=== PATIENT | female | born 1955 | race Caucasian/White ===

== ENCOUNTER 2017-03-06 09:14 | Emergency (ER) | payer OTHER ==
[~2017-03-06] VITALS: Ht 160 cm; Wt 55.8 kg
[2017-03-06 09:19] VITALS: Ht 160 cm; Wt 55.8 kg
[2017-03-06] MEDS ORDERED: SODIUM CHLORIDE 0.9% 1000ML 1,000 ML IV STA ×2 (09:59→11:31)
--- NOTE | 2017-03-06 10:01 | EMERGENCY ROOM VISIT NOTE ---
History Report prepared by Lizabeth: Myranda Vergara Under the Supervision of: Dr. Ave Angulo D.O. First contact with patient: 09:32 Chief Complaint: NEURO SYMPTOMS Stated Complaint: DISORIENTED,STUMBLING,HIGH BLOOD PRESSURE History of Present Illness The patient is a 61 year old female who presents to the Emergency Room with complaints of constant lightheadedness beginning 3 hours ago. The patient states that she works with the [employer] for the [employer] and has been very busy. She reports that she felt fine when she woke up this morning but when she was at breakfast she started to feel lightheaded. She notes that her daughter and started to notice her disorientation after breakfast when they noticed her stumbling and slurred speech. The patient states she didn't notice any changes in speech or feel off balance walking. The patient states that she sometimes stumbles when she is texting and walking but her notes that she was off-balance and was not texting at all. The patient's notes that her short term memory was off and there was a gap of time missing from her memory. He notes that she was mentally slower than usual and was not able to remember things that just happened. The patient complains of tiredness, slurred speech, stumbling, and constant lightheadedness. She denies any neck pain, back pain, achiness, blurry vision, double vision, cough, cold, fever, chills, new ringing in the ears, headache, urinary symptoms, chest pain, shortness of breath, abdominal pain, nausea, numbness, tingling. She notes that she ate a normal breakfast and has not drank a lot of fluids. The patient's reports that they checked her blood pressure and it was slightly higher than usual as she usually runs low. No recent trauma, no recent illness, no recent change in medications. Source of History: patient Onset: 3 hours ago Position: other (neurologic) Quality: other (disorientation) Timing: constant Associated Symptoms: No fevers, No headache, No cough, No neck pain, No chest pain, No SOB, No nausea, No abdominal pain, No back pain, No urinary symptoms, No numbness Note: The patient complains of tiredness, slurred speech, stumbling, and constant lightheadedness. She denies any achiness, blurry vision, double vision, new ringing in the ears, tingling. Review of Systems See HPI for pertinent positives & negatives. A total of 10 systems reviewed and were otherwise negative. Past Medical & Surgical Medical Problems: (1) Exposure to TB (2) Lung disease Family History No pertinent family history stated. Social History Smoking Status: Never Smoker Marital Status: Housing Status: lives with family Occupation Status: employed Current/Historical Medications Scheduled Belimumab (Benlysta), Unknown Dose IV MONTHLY Bupropion Hcl (Wellbutrin Sr), 500 MG PO DAILY Celecoxib (CeleBREX), Unknown Dose PO DAILY Isoniazid (Isoniazid), Unknown Dose PO DAILY Magnesium Oxide (Mag-Ox), 400 MG PO DAILY Miscellaneous Medications Thiamine Hcl (Vitamin B-1), 50 MG PO Allergies Coded Allergies: Sulfa Antibiotics (Unverified Allergy, Unknown, ., 03/06/17) Physical Exam Vital Signs Date Time Temp Pulse Resp B/P (MAP) Pulse Ox O2 Delivery O2 Flow Rate FiO2 03/06/17 15:21 36.4 68 18 133/86 100 03/06/17 14:23 71 125/80 100 72 145/94 136/88 03/06/17 13:27 71 18 110/76 100 72 120/89 75 109/85 03/06/17 11:11 68 16 131/83 100 Room Air 03/06/17 09:35 78 03/06/17 09:19 36.4 73 18 127/80 99 Room Air Physical Exam GENERAL: alert, well appearing, well nourished, no distress, non-toxic EYE EXAM: normal conjunctiva, PERRL and EOM's grossly intact OROPHARYNX: no exudate, no erythema, lips, buccal mucosa, and tongue normal and mucous membranes are moist NECK: supple, no nuchal rigidity, no adenopathy, non-tender LUNGS: Clear to auscultation. Normal chest wall mechanics HEART: no murmurs, S1 normal and S2 normal ABDOMEN: abdomen soft, non-tender, normo-active bowel sounds, no masses, no rebound or guarding. BACK: Back is symmetrical on inspection and there is no deformity, no midline tenderness, no CVA tenderness. SKIN: no rashes and no bruising UPPER EXTREMITIES: upper extremities are grossly normal. LOWER EXTREMITIES: No pitting edema. NEURO EXAM: Normal sensorium, cranial nerves II-XII grossly intact, normal speech, no gross weakness of arms, no gross weakness of legs. No drift. Finger to nose intact. Gross sensation intact. Negative pronator drift, normal heel to clifton. Negative Hints exam. NIHSS 0. Medical Decision & Procedures ER Provider Diagnostic Interpretation: Radiology results have been interpreted by the radiologist and reviewed by me. HEAD CTA FINDINGS: There is no mass, hematoma, midline shift, or acute infarct. Visualized intracranial internal carotid arteries, distal vertebral arteries, and basilar artery are widely patent. There is no significant stenosis, occlusion, or aneurysm seen within the bilateral ACAs, MCAs, or paving plant operator. IMPRESSION: No significant stenosis, occlusion, or aneurysm within the [place] of [place]. No acute intracranial abnormality. Electronically signed by: Butch Adams M.D. 03/06/2017 11:12 AM Dictated Date/Time: 03/06/2017 11:09 AM CHEST ONE VIEW PORTABLE FINDINGS: The lungs are clear. Cardiac silhouette is normal in size. No pleural effusions. No pneumothorax. IMPRESSION: No acute process. Electronically signed by: Butch Adams M.D. 03/06/2017 10:37 AM Dictated Date/Time: 03/06/2017 10:36 AM NECK CTA FINDINGS: The aortic arch and proximal great vessels are widely patent. There is no significant stenosis, occlusion, or dissection identified within the bilateral common carotid, internal carotid, or vertebral arteries. IMPRESSION: No significant stenosis, occlusion, or dissection identified within the carotid or vertebral arteries. Electronically signed by: Butch Adams M.D. 03/06/2017 11:15 AM Dictated Date/Time: 03/06/2017 11:12 AM Laboratory Results 03/06/17 09:30 Red Blood Count 3.80, Mean Corpuscular Volume 93.2, Mean Corpuscular Hemoglobin 32.1, Mean Corpuscular Hemoglobin Concent 34.5, Mean Platelet Volume 10.2, Neutrophils (%) (Auto) 53.0, Lymphocytes (%) (Auto) 32.4, Monocytes (%) (Auto) 9.0, Eosinophils (%) (Auto) 4.5, Basophils (%) (Auto) 1.1, Neutrophils # (Auto) 1.88, Lymphocytes # (Auto) 1.15, Monocytes # (Auto) 0.32, Eosinophils # (Auto) 0.16, Basophils # (Auto) 0.04 03/06/17 09:30 Test 03/06/17 09:30 03/06/17 11:57 03/06/17 13:26 White Blood Count 3.55 K/uL (4.8-10.8) Red Blood Count 3.80 M/uL (4.2-5.4) Hemoglobin 12.2 g/dL (12.0-16.0) Hematocrit 35.4 % (37-47) Mean Corpuscular Volume 93.2 fL (80-100) Mean Corpuscular Hemoglobin 32.1 pg (25-34) Mean Corpuscular Hemoglobin Concent 34.5 g/dl (32-36) Platelet Count 193 K/uL (130-400) Mean Platelet Volume 10.2 fL (7.4-10.4) Neutrophils (%) (Auto) 53.0 % Lymphocytes (%) (Auto) 32.4 % Monocytes (%) (Auto) 9.0 % Eosinophils (%) (Auto) 4.5 % Basophils (%) (Auto) 1.1 % Neutrophils # (Auto) 1.88 K/uL (1.4-6.5) Lymphocytes # (Auto) 1.15 K/uL (1.2-3.4) Monocytes # (Auto) 0.32 K/uL (0.11-0.59) Eosinophils # (Auto) 0.16 K/uL (0-0.5) Basophils # (Auto) 0.04 K/uL (0-0.2) RDW Standard Deviation 41.4 fL (36.4-46.3) RDW Coefficient of Variation 12.2 % (11.5-14.5) Immature Granulocyte % (Auto) 0.0 % Immature Granulocyte # (Auto) 0.00 K/uL (0.00-0.02) Anion Gap 6.0 mmol/L (3-11) Est Creatinine Clear Calc Drug Dose 40.7 ml/min Estimated GFR () 56.5 Estimated GFR (Non- 48.7 BUN/Creatinine Ratio 15.3 (10-20) Calcium Level 8.7 mg/dl (8.5-10.1) Magnesium Level 2.2 mg/dl (1.8-2.4) Total Bilirubin 0.3 mg/dl (0.2-1) Aspartate Amino Transf (AST/SGOT) 44 U/L (15-37) Alanine Aminotransferase (ALT/SGPT) 50 U/L (12-78) Alkaline Phosphatase 119 U/L (45-117) Troponin I < 0.015 ng/ml (0-0.045) Total Protein 6.9 gm/dl (6.4-8.2) Albumin 3.5 gm/dl (3.4-5.0) Globulin 3.4 gm/dl (2.5-4.0) Albumin/Globulin Ratio 1.0 (0.9-2) Thyroid Stimulating Hormone (TSH) 2.460 uIu/ml (0.300-4.500) Urine Color YELLOW Urine Appearance CLEAR (CLEAR) Urine pH 5.0 (4.5-7.5) Urine Specific [place] 1.039 (1.000-1.030) Urine Protein NEG (NEG) Urine Glucose (UA) NEG (NEG) Urine Ketones NEG (NEG) Urine Occult Blood NEG (NEG) Urine Nitrite NEG (NEG) Urine Bilirubin NEG (NEG) Urine Urobilinogen NEG (NEG) Urine Leukocyte Esterase NEG (NEG) Bedside Troponin I 0.000 ng/ml (0-0.045) Laboratory results per my review. Medications Administered Medications (Trade) Dose Ordered Sig/Yaritza Route Start Time Stop Time Status Last Admin Dose Admin Sodium Chloride 1,000 ml @ 999 mls/hr Q1H1M STAT IV 03/06/17 09:59 03/06/17 10:59 DC 03/06/17 10:30 999 MLS/HR ECG Indication: weakness Rate (beats per minute): 69 Rhythm: sinus rhythm Findings: no acute ischemic change, no ectopy, other (normal intervals, normal axis) ED Course 0932: The patient was evaluated in room B9. A complete history and physical exam was performed. 0959: Sodium Chloride 1000 ml @ 999 mls/hr IV. 1131: Sodium Chloride 1000 ml @ 999 mls/hr IV. 1238: I reevaluated and updated the patient. She is feeling better. 1455: I reevaluated the patient and she is doing well. 1515: Upon reevaluation, the patient is feeling better. I discussed the findings and the treatment plan with the patient. She verbalizes agreement and understanding. The patient was discharged home. Medical Decision Differential diagnosis: Etiologies such as benign positional vertigo, dehydration, hypovolemia, anemia, tumor, infection, hypoglycemia, electrolyte abnormalities, cardiac sources, intracerebral event, toxicologic, neurologic, as well as others were entertained. Medication Reconciliation: I attest that I have personally reviewed the patient' s current medication list. Blood pressure screening: Patient was found to have an elevated blood pressure and was referred to their primary doctor for recheck and further treatment. Pt well appearing here despite concerns of family. Pt denied any complaints. Appears fatigued, but no sx to suggest cva. NIHSS 0, Hints negative, imaging and labs reassuring. BP acceptable, doubt hypertensive urgency/emergency, doubt ACS with neg trop x 2 and pt low risk. Pt not orthostatic and felt improved after IVF. Possible fatigue/dehydration. No other acute sx to suggest GI or pulmonary pathology. Discussed close f/u with her PCP, sx to watch/return for, possible ddx, she and family verbalized understanding and were agreeable with plan. Doubt occult infectious etiology, doubt vascular etiology. Pt doesn't have significant risk factors for stroke. Impression Primary Impression: Dizziness Scribe Attestation The scribe's documentation has been prepared under my direction and personally reviewed by me in its entirety. I confirm that the note above accurately reflects all work, treatment, procedures, and medical decision making performed by me. Departure Information Dispostion Home / Self-Care Referrals No Doctor, Assigned (PCP) Forms HOME CARE DOCUMENTATION FORM, IMPORTANT VISIT INFORMATION, WORK / SCHOOL INSTRUCTIONS Patient Instructions My [facility] Additional Instructions Please rest continue drinking plenty of fluids. Please avoid any strenuous activity or heavy lifting until you're seen and evaluated by her family doctor. Please keep your appointment with her cougar hunter for Wednesday but do see her family doctor next week to talk about the events of today and your evaluation. If you have any recurrent dizziness or lightheadedness, develop difficulty walking, develop headaches, vision changes, weakness, numbness or tingling, chest pain, trouble breathing, or you've any other new or concerning symptoms, please return the emergency room.
[2017-03-06] MEDS ORDERED: OPTIRAY 320 IV PRN (10:15)
[2017-03-06 10:33] LABS: BASO % 1.1 %; BASO ABS # 0.04 K/uL (0-0.2); COMPLETE YES; EOS % 4.5 %; HEMATOCRIT 35.4 % (37-47); LYMPH % 32.4 %; LYMPH ABS # 1.15 K/uL (1.2-3.4); MEAN CELL VOLUME 93.2 fL (80-100); MEAN CORPUSCULAR HEMOGLOBIN 32.1 pg (25-34); MEAN CORPUSCULAR HGB CONC 34.5 g/dl (32-36); MEAN PLATELET VOLUME 10.2 fL (7.4-10.4); PLATELET COUNT 193 K/uL (130-400); WHITE BLOOD COUNT 3.55 K/uL (4.8-10.8)
[2017-03-06] MEDS ORDERED: BELI1INJ IV (10:33)
[2017-03-06] MEDS ORDERED: ISON100T3 PO (10:33)
[2017-03-06] MEDS ORDERED: BUPR100T5 PO (10:33)
[2017-03-06] MEDS ORDERED: MAGN400T6 PO (10:33)
[2017-03-06] MEDS ORDERED: THIA50CA PO (10:33)
[2017-03-06] MEDS ORDERED: CLB/200 PO (10:33)
--- NOTE | 2017-03-06 10:38 | DIAGNOSTIC IMAGING REPORT ---
CHEST ONE VIEW PORTABLE HISTORY: cough COMPARISON: None. FINDINGS: The lungs are clear. Cardiac silhouette is normal in size. No pleural effusions. No pneumothorax. IMPRESSION: No acute process. Electronically signed by: Butch Adams M.D. 03/06/2017 10:37 AM Dictated Date/Time: 03/06/2017 10:36 AM
[2017-03-06 10:39] LABS: ALT/SGPT 50 U/L (12-78); AST/SGOT 44 U/L (15-37); BLOOD UREA NITROGEN 18 mg/dl (7-18); BUN/CREATININE RATIO 15.3 (10-20); CALCIUM 8.7 mg/dl (8.5-10.1); CARBON DIOXIDE 29 mmol/L (21-32); CHLORIDE 111 mmol/L (98-107); GLUCOSE 103 mg/dl (70-99); MAGNESIUM 2.2 mg/dl (1.8-2.4); POTASSIUM 4.1 mmol/L (3.5-5.1); SODIUM 146 mmol/L (136-145)
[2017-03-06 10:50] LABS: ALKALINE PHOSPHATASE 119 U/L (45-117)
--- NOTE | 2017-03-06 11:14 | DIAGNOSTIC IMAGING REPORT ---
HEAD CTA HISTORY: dizzy, altered gait TECHNIQUE: Multiaxial CT images of the head were performed both before and after the intravenous administration of contrast to evaluate the major cerebral vessels. Maximum intensity projection images were also obtained. COMPARISON: None. FINDINGS: There is no mass, hematoma, midline shift, or acute infarct. Visualized intracranial internal carotid arteries, distal vertebral arteries, and basilar artery are widely patent. There is no significant stenosis, occlusion, or aneurysm seen within the bilateral ACAs, MCAs, or plant controller. IMPRESSION: No significant stenosis, occlusion, or aneurysm within the [place] of [place]. No acute intracranial abnormality. Electronically signed by: Butch Adams M.D. 03/06/2017 11:12 AM Dictated Date/Time: 03/06/2017 11:09 AM
--- NOTE | 2017-03-06 11:16 | DIAGNOSTIC IMAGING REPORT ---
NECK CTA HISTORY: Dizziness. Altered gait. TECHNIQUE: Multiaxial CT images of the neck were performed following the intravenous administration of contrast to evaluate the major cervical vessels. Maximum intensity projection images were also obtained. All measurements were calculated based on NASCET criteria. COMPARISON STUDY: None. FINDINGS: The aortic arch and proximal great vessels are widely patent. There is no significant stenosis, occlusion, or dissection identified within the bilateral common carotid, internal carotid, or vertebral arteries. IMPRESSION: No significant stenosis, occlusion, or dissection identified within the carotid or vertebral arteries. Electronically signed by: Butch Adams M.D. 03/06/2017 11:15 AM Dictated Date/Time: 03/06/2017 11:12 AM
[2017-03-06 12:15] LABS: URINE APPEARANCE CLEAR (CLEAR); URINE BILIRUBIN NEG (NEG); URINE COLOR YELLOW; URINE NITRITE NEG (NEG); URINE SPECIFIC GRAVITY 1.039 (1.000-1.030); UROBILINOGEN NEG (NEG); ZZUR CULT IF INDIC CLEAN CATCH NO
[2017-03-06 12:19] LABS: MANUAL MICROSCOPIC REQUIRED? NO; REVIEW REQ? NO
[2017-03-06 15:21] VITALS: BP 133/86; PULSE 68; TEMP 36.4; O2SAT 100
== END 2017-03-06 15:20 | disposition home or self-care (01) ==
LOC: C.EDB 09:17
DX: R42 Dizziness and giddiness (principal); Z87.09 Personal history of other diseases of the respiratory system; Z86.11 Personal history of tuberculosis; Z79.899 Other long term (current) drug therapy; Z88.2 Allergy status to sulfonamides